=== PATIENT | male | born 1960 | race Caucasian/White ===

== ENCOUNTER 2020-08-28 19:56 | Emergency (ER) | payer MEDICAID ==
[~2020-08-28] VITALS: Ht 185.4 cm; Wt 81.8 kg
[~2020-08-28 19:56] MED LIST: ACET325T14 PO; CLON-364 PO; CLON1TAB23 PO; CYAN100072 PO; LEVE500T22 PO; PRIM50TA PO
[2020-08-28] MEDS ORDERED: TOPI25TA8 PO (21:08)
--- NOTE | 2020-08-28 21:08 | NUR ---
"I HAD 30 SZ TODAY, LAST ONE WAS AT 1732" PT IN BED WITH CONT CARDAIC MONITOR, SPO2, BP Q 30 MIN, SIDE RAILS UP X2, CALL LIGHT IN REACH. PT A&OX4. AWATING TO SEE.
[2020-08-28] MEDS ORDERED: LORazepam 2 MG/ML, 1ML ONE (21:46)
--- NOTE | 2020-08-28 21:49 | NUR ---
Patient is resting comfortably in bed. Bed in lowest, rails engaged, call light on lap. Vital Signs within normal limits. WCTM. NADN. SEIZURE PRECAUTIONS PUT INTO PLACE. SEIZURE PADS, SUCTION, AND AMBU BAG AT BEDSIDE. MEDICATED PT PER EMAR.
[2020-08-28] MEDS ORDERED: SODIUM CHLORIDE FLUSH 10ML SYR IVF ONE (22:00)
[2020-08-28] MEDS ORDERED: LORazepam 2 MG/ML, 1ML IVPush ONE (22:00)
--- NOTE | 2020-08-28 22:29 | NUR ---
PT OFF UNIT IN IMAGING
[2020-08-28 22:53] LABS: BASOPHILS % (AUTO) 1 % (0-1); EOSINOPHILS % (AUTO) 2 % (1-7); LYMPHOCYTES % (AUTO) 25 % (22-44); MEAN CORPUSCULAR HEMOGLOBIN 29.3 pg (27.5-34.5); MEAN CORPUSCULAR HGB CONC 34.3 g/dL (33.2-36.2); MEAN PLATELET VOLUME 8.6 fL (7.4-10.4); MONOCYTES % (AUTO) 6 % (2-9); NEUTROPHILS % (AUTO) 66 % (42-75); PLATELET COUNT 171 x10^3/uL (130-400); RED BLOOD COUNT 5.12 x10^6/uL (4.38-5.82); RED CELL DISTRIBUTION WIDTH 13.7 % (9.4-14.8)
[2020-08-28 23:04] LABS: ALANINE AMINOTRANSFERASE 21 U/L (12-78); ALBUMIN 3.7 g/dL (3.4-5.0); ANION GAP 7 mmol/L (5-15); CALCIUM 8.5 mg/dL (8.5-10.1); CHLORIDE 114 mmol/L (98-107); CREATININE 0.82 mg/dL (0.7-1.3)
--- NOTE | 2020-08-28 23:05 | NUR ---
PT GIVEN URINAL. HAS BEEN TRYING TO ATTEMPT FOR LAST HOUR BUT HAS NOT BEEN SUCCESSFUL. TRIED PUTTING THE WATER FAUCIT ON AND GIVING PRIVACY BUT NO SUCCESS. WILL CONTINUE JUAN TRY
[2020-08-28 23:08] LABS: ALKALINE PHOSPHATASE 62 U/L (45-117); BILIRUBIN,TOTAL 0.5 mg/dL (0.2-1.0); TOTAL PROTEIN 7.1 g/dL (6.4-8.2); TROPONIN I < 0.015 ng/mL (0.000-0.045)
--- NOTE | 2020-08-28 23:09 | NUR ---
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
[2020-08-28 23:52] LABS: MICROSCOPIC NOT IND
[2020-08-29 00:39] VITALS: BP 130/74
--- NOTE | 2020-08-29 00:39 | NUR ---
Patient is sleeping comfortably in bed. eyes closed. blankets were given earlier. Bed in lowest, rails engaged, call light on lap. Vital Signs within normal limits. WCTM. nadn
== END 2020-08-29 01:45 | disposition home or self-care (01) ==
LOC: ED 20:15
DX: G40.309 Generalized idiopathic epilepsy and epileptic syndromes, not intractable, without status epilepticus (principal); R51.9 Headache, unspecified; R06.89 Other abnormalities of breathing
CPT/HCPCS: 36415; 70450; 71045; 80053; 81003; 83880; 84484; 85025; 93005; 96374; 99285; J2060